=== PATIENT | female | born 1940 | race Caucasian/White ===

== ENCOUNTER 2021-11-19 00:17 | Emergency (ER) | payer BC, MEDICARE, OTHER ==
[~2021-11-19] VITALS: Ht 165.1 cm; Wt 57.2 kg
[~2021-11-19 00:17] MED LIST: ATENOLOL50 MG PO; GABAPEN; GABAPENTIN100 MG PO; GLIMEPIRIDE4 MG PO; HUMALOG MI100 UNIT/4; LOSARTAN POTASS25 MG PO; LOVAZA1 GM PO; METFORMIN HCL500 MG PO; MVI; PLAVIX75 MG PO; PROMETHAZINE HC25 M1 PO; RANEXA500 MG PO; RESTORIL PO; TEMAZEPAM30 MG PO; ULTRAM50 MG PO; VYTORIN 10-401 EACH PO; [UNRECOGNIZED DRUG - OTHER] SC
[2021-11-19] MEDS ORDERED: SODIUM CHLORIDE 0.9% 1000ML 1,000 ML IV STA (00:26)
[2021-11-19 00:51] LABS: BASOPHILS # (AUTO) 0.1 (0.0-0.1); BASOPHILS % 0.6 % (0.0-1.0); EOSINOPHILS # (AUTO) 0.1 (0.0-0.4); EOSINOPHILS % 0.3 % (0.0-6.0); HEMATOCRIT 38.4 % (34.2-44.1); HEMOGLOBIN 12.2 g/dL (12.0-16.0); LYMPHOCYTES # (AUTO) 4.2 (1.0-3.2); LYMPHOCYTES % 23.4 % (18.0-39.1); MEAN CORPUSCULAR HEMOGLOBIN 29.4 pg (28-32); MEAN CORPUSCULAR HGB CONC 31.8 g/dL (31-35); MEAN CORPUSCULAR VOLUME 92.5 fL (81-99); MONOCYTES # (AUTO) 0.7 (0.2-0.8); MONOCYTES % 3.7 % (4.4-11.3); NEUTROPHILS # (AUTO) 12.7 (2.1-6.9); NEUTROPHILS % 71.1 % (38.7-80.0); PLATELET COUNT 390 x10e3/uL (140-360); RED BLOOD COUNT 4.15 x10e6/uL (3.6-5.1); RED CELL DISTRIBUTION WIDTH 13.2 % (11.7-14.4)
[2021-11-19 01:20] LABS: ALBUMIN/GLOBULIN RATIO 0.6 (0.8-2.0); ANION GAP 17.7 mmol/L (8-16); CALCIUM 9.9 mg/dL (8.4-10.2); CREATININE, SERUM 1.7 mg/dL (0.57-1.11); POTASSIUM 4.7 mmol/L (3.5-5.1)
[2021-11-19 01:28] LABS: CREATINE KINASE MB 1.7 ng/mL (0-5.0)
[2021-11-19 01:47] LABS: CLARITY,URINE CLEAR (CLEAR); COLOR,URINE YELLOW (YELLOW); KETONES,URINE NEGATIVE (NEGATIVE); LEUKOCYTE ESTERASE ,URINE TRACE (NEGATIVE); NITRITE,URINE NEGATIVE (NEGATIVE); PROTEIN,URINE DIPSTICK NEGATIVE (NEGATIVE); URINE UROBILINOGEN 0.2 mg/dL (0.2 - 1)
[2021-11-19 01:51] LABS: BACTERIA,URINE FEW /HPF; EPITHELIAL CELLS,URINE MODERATE /LPF; RBC,URINE 0-5 /HPF (0-5)
[2021-11-19 03:12] VITALS: BP 123/49
== END 2021-11-19 03:15 | disposition home or self-care (01) ==
LOC: ER 00:27
DX: S01.01XA Laceration without foreign body of scalp, initial encounter (principal); S51.002A Unspecified open wound of left elbow, initial encounter; W18.39XA Other fall on same level, initial encounter; Y93.01 Activity, walking, marching and hiking; Y92.89 Other specified places as the place of occurrence of the external cause; K56.41 Fecal impaction; R91.8 Other nonspecific abnormal finding of lung field
CPT/HCPCS: 12001; 36415; 70450; 71045; 72125; 73080; 74176; 80053; 81001; 82550; 82553; 84484; 85025; 93005; 99284; J7030

== ENCOUNTER 2021-11-26 23:10 | Emergency (ER) | payer BC, MEDICARE ==
[~2021-11-26] VITALS: Ht 165.1 cm; Wt 57.2 kg
[2021-11-27 02:11] VITALS: BP 119/62
== END 2021-11-27 02:48 | disposition home or self-care (01) ==
LOC: ER 23:15
DX: Z48.02 Encounter for removal of sutures (principal); R41.0 Disorientation, unspecified; Z95.1 Presence of aortocoronary bypass graft; Z95.5 Presence of coronary angioplasty implant and graft
CPT/HCPCS: 70450; 99283

== ENCOUNTER → 2024-12-03 | Outpatient (REF) | payer BC, MEDICARE ==
[~2024-12-03] MED LIST changes: +KEPPRA500 MG PO
== END ==
LOC: RAD 15:36
PROVIDERS: ATTEND Internal Medicine
DX: R06.02 Shortness of breath (principal); J81.1 Chronic pulmonary edema
CPT/HCPCS: 71046